=== PATIENT | female | born 1995 | race African-American/Black ===

== ENCOUNTER 2021-02-20 17:48 | Emergency (ER) | payer SELFPAY ==
[~2021-02-20] VITALS: Ht 170.2 cm; Wt 59.0 kg
[2021-02-20 17:49] VITALS: BP 115/77
== END 2021-02-20 21:31 | disposition left against medical advice (07) ==
LOC: ER 17:48
DX: K08.89 Other specified disorders of teeth and supporting structures (principal); Z86.59 Personal history of other mental and behavioral disorders
CPT/HCPCS: 99283